=== PATIENT | female | born 1980 | race Caucasian/White ===

== ENCOUNTER 2020-07-31 09:37 | Emergency (ER) | payer OTHER ==
[2020-07-31] MEDS ORDERED: Ondansetron 4 MG/2 ML SDV IVPUSH PRN (09:58)
[2020-07-31] MEDS ORDERED: Sodium Chloride 0.9% 1,000 ML IV ONE (09:59)
--- NOTE | 2020-07-31 10:18 | EDM.PDOC ---
ED HPI GENERAL MEDICAL PROBLEM - General Chief Complaint: Gastrointestinal Problem Stated Complaint: ABD PAIN/N/V Time Seen by Provider: 07/31/20 10:12 Source of Information: Reports: Patient History Limitations: Reports: No Limitations - History of Present Illness INITIAL COMMENTS - FREE TEXT/NARRATIVE: El is a 39 yo female who presents to the ED with c/o abdominal pain, nausea, vomiting, and low grade fever. She reports she started with some diarrhea Tuesday evening. Throughout the evening abdominal pain worsened. She reports that yesterday she continued with nausea, vomiting and diarrhea. Reports pain initially started in epigastric region on Tuesday evening and then eventually progressed to RLQ, but now it is more generalized. Developed low grade fever yesterday. She reports upon presentation, pain is tolerable. She has not been able to eat/drink much the last few days. She denies any URI symptoms, urinary symptoms, chest pain, shortness of breath. No known sick contacts. Onset Date: 07/29/20 Location: Reports: Abdomen Quality: Reports: Ache, Sharp Improves with: Reports: None Worsens with: Reports: Movement Associated Symptoms: Reports: Fever/Chills, Loss of Appetite, Malaise, Nausea/Vomiting. Denies: Confusion, Chest Pain, Cough, cough w sputum, Diaphoresis, Headaches, Rash, Seizure, Shortness of Breath, Syncope, Weakness Treatments PHARMACOGNOSIST: Reports: NSAIDS Right Abdominal Pain Score (Numeric/FACES): 6 - Related Data Allergies Allergy/AdvReac Type Severity Reaction Status Date / Time No Known Allergies Allergy Verified 07/31/20 09:49 Home Meds: Home Meds . [No Known Home Meds] 07/31/20 [History] Past Medical History - Past Health History Medical/Surgical History: Denies Medical/Surgical History DIRECTOR TITLE History: Reports: Dysfunctional Uterine Bleeding Social & Family History - Family History Family Medical History: No Pertinent Family History - Tobacco Use Tobacco Use Status *Q: Never Tobacco User - Caffeine Use Caffeine Use: Reports: None - Recreational Drug Use Recreational Drug Use: No ED ROS GENERAL - Review of Systems Review Of Systems: See Below Constitutional: Reports: Fever, Malaise, Fatigue, Decreased Appetite HEENT: Reports: No Symptoms Respiratory: Reports: No Symptoms Cardiovascular: Reports: No Symptoms Endocrine: Reports: No Symptoms GI/Abdominal: Reports: Abdominal Pain, Diarrhea, Decreased Appetite, Nausea, Vomiting. Denies: Black Stool, Bloody Stool : Reports: No Symptoms Musculoskeletal: Reports: No Symptoms Skin: Reports: No Symptoms Neurological: Reports: No Symptoms Psychiatric: Reports: No Symptoms Hematologic/Lymphatic: Reports: No Symptoms Immunologic: Reports: No Symptoms ED EXAM, GI/ABD - Physical Exam Exam: See Below Exam Limited By: No Limitations General Appearance: Alert, WD/WN, No Apparent Distress Eyes: Bilateral: Normal Appearance, EOMI Throat/Mouth: Normal Inspection, Normal Lips, Normal Teeth, Normal Gums, Normal Oropharynx, Normal Voice, No Airway Compromise Head: Atraumatic, Normocephalic Neck: Normal Inspection, Supple, Non-Tender, Full Range of Motion Respiratory/Chest: No Respiratory Distress, Lungs Clear, Normal Breath Sounds, No Accessory Muscle Use, Chest Non-Tender Cardiovascular: Normal Peripheral Pulses, Regular Rate, Rhythm, No Edema, No Gallop, No JVD, No Murmur, No Rub GI/Abdominal Exam: Soft, No Organomegaly, No Distention, Tender (RLQ, LLQ), Abnormal Bowel Sounds (hypoactive). No: Guarding, Rigid, Rebound Back Exam: Normal Inspection, Full Range of Motion. No: CVA Tenderness (L), CVA Tenderness (R) Extremities: Normal Inspection, Normal Range of Motion, Non-Tender, Normal Capillary Refill, No Pedal Edema Neurological: Alert, Oriented, CN II-XII Intact, Normal Cognition, Normal Gait, Normal Reflexes, No Motor/Sensory Deficits Psychiatric: Normal Affect, Normal Mood Skin Exam: Warm, Dry, Intact, Normal Color, No Rash Lymphatic: No Adenopathy Course - Vital Signs Last Recorded V/S: Last Vital Signs Temp 97.7 F 07/31/20 09:46 Pulse 74 07/31/20 09:46 Resp 18 07/31/20 09:46 BP 147/96 H 07/31/20 09:46 Pulse Ox 100 07/31/20 09:46 - Orders/Labs/Meds Orders: Active Orders 24 hr Category Date Time Status Abdomen Pelvis w Cont [CT] Stat Exams 07/31/20 10:42 Taken HYDROmorphone [Dilaudid] Med 07/31/20 10:46 Active 0.5 mg IVPUSH Q1H PRN Ondansetron [Zofran] Med 07/31/20 09:58 Active 4 mg IVPUSH Q6H PRN Medication Orders Hydromorphone HCl (Dilaudid) 0.5 mg IVPUSH Q1H PRN PRN Reason: Pain Last Admin: 07/31/20 11:31 Dose: 0.5 mg Documented by: VIDYA Ondansetron HCl (Zofran) 4 mg IVPUSH Q6H PRN PRN Reason: Nausea/Vomiting Last Admin: 07/31/20 10:10 Dose: 4 mg Documented by: VIDYA Labs: Laboratory Tests 07/31/20 07/31/20 07/31/20 Range/Units 09:52 09:52 10:05 WBC 14.7 H (5.0-10.0) 10^3/uL RBC 4.33 (4.00-5.50) 10^6/uL Hgb 14.5 (12.0-16.0) g/dL Hct 40.9 (37.0-47.0) % MCV 94.5 H (82.0-94.0) fL MCH 33.5 H (27.0-32.0) pg MCHC 35.5 (33.0-38.0) g/dL RDW Coeff of Odell 12.4 (11.0-15.0) % Plt Count 245 (150-400) 10^3/uL Neut % (Auto) 79.8 (35-85) % Lymph % (Auto) 11.5 (10-55) % [place] % (Auto) 8.2 (0-16) % Eos % (Auto) 0.4 (0-5) % Baso % (Auto) 0.1 (0-3) % Neut # (Auto) 11.75 H (1.80-7.00) 10^3/uL Lymph # (Auto) 1.70 (1.00-4.80) 10^3/uL [place] # (Auto) 1.20 H (0.00-0.80) 10^3/uL Eos # (Auto) 0.06 (0.00-0.45) 10^3/uL Baso # (Auto) 0.01 10^3/uL Sodium 141 (136-145) mEq/L Potassium 3.6 (3.5-5.0) mEq/L Chloride 102 (98-106) mEq/L Carbon Dioxide 28 (21-32) mmol/L BUN 7 (7-18) mg/dL Creatinine 0.7 (0.6-1.0) mg/dL Est Cr Clr Drug Dosing 99.01 mL/min Estimated GFR (MDRD) > 60 (>=60) mL/min Glucose 114 H D (75-99) mg/dL Calcium 9.6 (8.4-10.1) mg/dL Total Bilirubin 0.7 (0.0-1.0) mg/dL AST 16 (15-37) U/L ALT 27 (12-78) U/L Alkaline Phosphatase 53 (46-116) U/L C-Reactive Protein 7.0 H (0.2-0.8) mg/dL Total Protein 8.0 (6.4-8.2) g/dL Albumin 3.9 (3.4-5.0) g/dL Amylase 36 (25-115) U/L Lipase 60 L (73-393) U/L Urine Color Yellow (YELLOW) Urine Appearance Clear (CLEAR) Urine pH 7.0 (4.5-8.0) Ur Specific [place] 1.010 (1.003-1.020) Urine Protein Negative (NEGATIVE) mg/dL Urine Glucose (UA) Negative (NEGATIVE) mg/dL Urine Ketones Negative (NEGATIVE) mg/dL Urine Occult Blood Small H (NEGATIVE) Urine Nitrite Negative (NEGATIVE) Urine Bilirubin Negative (NEGATIVE) Urine Urobilinogen 0.2 (0.2-1.0) EU/dL Ur Leukocyte Esterase Negative (NEGATIVE) Urine RBC 0-5 (0-5) /HPF Urine WBC Not seen (0-5) /HPF Meds: Medications Generic Name Dose Route Start Last Admin Trade Name Freq PRN Reason Stop Dose Admin Hydromorphone HCl 0.5 mg 07/31/20 10:46 07/31/20 11:31 Dilaudid IVPUSH 0.5 mg Q1H PRN Administration Pain Ondansetron HCl 4 mg 07/31/20 09:58 07/31/20 10:10 Zofran IVPUSH 4 mg Q6H PRN Administration Nausea/Vomiting Discontinued Medications Generic Name Dose Route Start Last Admin Trade Name Freq PRN Reason Stop Dose Admin Barium Sulfate 900 ml 07/31/20 11:58 Readi-Cat 2 PO 07/31/20 11:59 ONETIME ONE Ceftriaxone Sodium 1 gm 07/31/20 13:50 07/31/20 14:01 Rocephin IVPUSH 07/31/20 13:51 1 gm ONETIME ONE Administration Sodium Chloride 1,000 mls @ 999 mls/hr 07/31/20 09:59 07/31/20 10:11 Normal Saline IV 07/31/20 10:59 999 mls/hr .BOLUS ONE Administration Iopamidol 100 ml 07/31/20 10:42 07/31/20 13:03 Isovue-370 (76%) IVPUSH 07/31/20 10:43 100 ml ONETIME ONE Administration - Re-Assessments/Exams Free Text/Narrative Re-Assessment/Exam: Discussed labs and CT findings with patient. Wishes for transfer to [facility] via private vehicle. Discussed risks and benefits of transfer with patient. Risks of transfer include worsening of condition, pain, , and MVA enroute. Benefits of transfer include higher level of care with surgical consultation. Risks of nontransfer include worsening of condition, sepsis, and . Benefits of nontransfer include convenience. Patient verbalized understanding and was agreeable with transfer via private vehicle. Departure - Departure Time of Disposition: 14:11 Disposition: Home, Self-Care 01 Clinical Impression: Perforated appendicitis - Discharge Information *PRESCRIPTION DRUG MONITORING PROGRAM REVIEWED*: Not Applicable *COPY OF PRESCRIPTION DRUG MONITORING REPORT IN PATIENT ANALIA: Not Applicable Referrals: Rich Rivers PA-C [Primary Care Provider] - Forms: ED Department Discharge Additional Instructions: - Stay NPO until surgery consult - Go directly to [facility] ER. Surgeon will see you there upon arrival. Sepsis Event Note (ED) - Evaluation Sepsis Screening Result: No Definite Risk - Focused Exam Vital Signs: Vital Signs Temp Pulse Resp BP Pulse Ox 07/31/20 09:46 97.7 F 74 18 147/96 H 100 - Problem List & Annotations (1) Perforated appendicitis SNOMED Code(s): 29745381 Code(s): K35.32 - ACUTE APPENDICITIS WITH PERF AND LOC PERITONITIS, W/O ABSCS Status: Acute Current Visit: Yes - Problem List Review Problem List Initiated/Reviewed/Updated: Yes - My Orders Last 24 Hours: My Active Orders 07/31/20 09:58 Ondansetron [Zofran] 4 mg IVPUSH Q6H PRN 07/31/20 10:42 Abdomen Pelvis w Cont [CT] Stat 07/31/20 10:46 HYDROmorphone [Dilaudid] 0.5 mg IVPUSH Q1H PRN - Assessment/Plan Last 24 Hours: My Active Orders 07/31/20 09:58 Ondansetron [Zofran] 4 mg IVPUSH Q6H PRN 07/31/20 10:42 Abdomen Pelvis w Cont [CT] Stat 07/31/20 10:46 HYDROmorphone [Dilaudid] 0.5 mg IVPUSH Q1H PRN Assessment:: Perforated Appendicitis Plan: 39 yo female presents to the ED with c/o 2 day hx of abdominal pain, N/V/D. Originally started in epigastric region then progressed to RLQ and now is more generalized. Developed fever last evening. WBC elevated to 14.7. CRP elevated to 7.0. Labs otherwise stable. CT abdomen/pelvis completed revealing perforated appendicitis with appendicolith, as well as some free fluid in pelvis. Consulted with Suzanne Amaya [employer] with general surgery at [facility], who accepted the patient for transfer. During ED stay, patient was given 1 G Rocephin, 1 L LR, total of 1 mg Dilaudid, and 4 mg Zofran. Pain was well controlled throughout stay. Patient had no further nausea or vomiting after Zofran administration. She wished to be transferred via private vehicle. Her will be transporting her to [facility] ED. Patient discharged from facility in stable condition.
[2020-07-31 10:27] LABS: CHLORIDE,CL 102 mEq/L (98-106); SODIUM,NA 141 mEq/L (136-145)
[2020-07-31] MEDS ORDERED: Iopamidol 755 Mg/ML 100 ML Bottle IVPUSH ONE (10:42)
[2020-07-31] MEDS: HYDROmorphone 1 MG/ML Syringe IVPUSH PRN ×2 (11:31→14:14)
[2020-07-31] MEDS ORDERED: Barium Sulfate Oral Susp 450 ML Bottle PO ONE (11:58)
[2020-07-31] MEDS ORDERED: cefTRIAXone 1 GM Vial IVPUSH ONE (13:50)
[2020-07-31 14:11] VITALS: BP 143/87; PULSE 67
== END 2020-07-31 14:25 ==
LOC: CC.ED 09:37
DX: K35.32 Acute appendicitis with perforation, localized peritonitis, and gangrene, without abscess (principal)
CPT/HCPCS: 36415; 74177; 80053; 81001; 82150; 83690; 85025; 86140; 96361; 96374; 96375; 96376; 99285-25; J0696; J1170; J2405; J7030; Q9967